=== PATIENT | female | born 1960 | race Caucasian/White ===

== ENCOUNTER → 2022-01-29 | Outpatient (CLI) | payer SELFPAY | LOC: MC.RAD 13:00 | DX: Z12.31 Encounter for screening mammogram for malignant neoplasm of breast (principal) ==

== ENCOUNTER → 2023-09-21 | Outpatient (CLI) | payer MEDICARE ==
[~2023-09-21] MED LIST: AMBIEN 5MG TABLE5 MG PO; CLARITIN 1010 MG/TAB PO; VITAMIN C500 MG PO; VITAMIN D31000 IU PO
== END ==
LOC: COL.VAS 10:07
DX: I08.3 Combined rheumatic disorders of mitral, aortic and tricuspid valves (principal); I31.39 Other pericardial effusion (noninflammatory)